=== PATIENT | male | born 1970 | race African-American/Black ===

== ENCOUNTER 2020-10-13 01:47 | Emergency (ER) | payer SELFPAY ==
[2020-10-13] MEDS ORDERED: Ciprofloxacin 500 MG Tab PO ONE (01:48)
[2020-10-13] MEDS ORDERED: Sodium Chloride 0.9% 10 ML Syringe FLUSH PRN (02:16)
[2020-10-13] MEDS ORDERED: HYDROmorphone 2 MG/ML SDV IVPUSH ONE (02:17)
--- NOTE | 2020-10-13 02:22 | EDM.PDOC ---
ED HPI GENERAL MEDICAL PROBLEM - General Stated Complaint: STOMACH PAIN Time Seen by Provider: 10/13/20 02:20 Source of Information: Reports: Patient History Limitations: Reports: No Limitations - History of Present Illness INITIAL COMMENTS - FREE TEXT/NARRATIVE: 49 yo male with severe abdominal colic for a bout 1 week. Nothing seems to help. No association with vomiting or constipation. No previous surgeries. He endorses dysuria as well Abdominal Pain Score (Numeric/FACES): 10 - Related Data Allergies Allergy/AdvReac Type Severity Reaction Status Date / Time No Known Allergies Allergy Verified 10/13/20 01:58 ED ROS GENERAL - Review of Systems Review Of Systems: Comprehensive ROS is negative, except as noted in HPI. ED EXAM, GI/ABD - Physical Exam Exam: See Below Exam Limited By: No Limitations General Appearance: Anxious, Mild Distress Ears: Normal External Exam Nose: Normal Inspection Neck: Normal Inspection Respiratory/Chest: No Respiratory Distress GI/Abdominal Exam: Normal Bowel Sounds, Distended, Guarding (Male) Exam: No Hernia Neurological: Alert Psychiatric: Normal Affect Course - Vital Signs Last Recorded V/S: Last Vital Signs Temp 97.4 F 10/13/20 01:47 Pulse 81 10/13/20 01:47 Resp 20 10/13/20 01:47 BP 152/102 H 10/13/20 01:47 Pulse Ox 100 10/13/20 01:47 - Orders/Labs/Meds Orders: Active Orders 24 hr Category Date Time Status Abdomen Pelvis w Cont [CT] Stat Exams 10/13/20 02:17 Taken CULTURE URINE [RM] Stat Lab 10/13/20 03:39 Ordered Sodium Chloride 0.9% [Saline Flush] Med 10/13/20 02:16 Active 10 ml FLUSH ASDIRECTED PRN Peripheral IV Insertion Adult [OM.PC] Routine Oth 10/13/20 02:16 Ordered Medication Orders Sodium Chloride (Saline Flush) 10 ml FLUSH ASDIRECTED PRN PRN Reason: Keep Vein Open Last Admin: 10/13/20 02:44 Dose: 10 ml Documented by: DIONNA Labs: Laboratory Tests 10/13/20 10/13/20 10/13/20 Range/Units 02:15 02:15 02:15 WBC 7.9 (3.2-10.1) x10-3/uL RBC 5.85 (3.90-5.90) x10(6)uL Hgb 14.7 (12.9-17.7) g/dL Hct 45.0 (38.3-50.1) % MCV 76.9 L (80.8-98.7) fL MCH 25.1 L (27.0-33.3) pg MCHC 32.6 (28.7-35.3) g/dL RDW 13.7 (12.4-15.0) % Plt Count 250 (117-477) x10(3)uL MPV 8.7 (6.7-11.0) fL Neut % (Auto) 64.0 (40.3-71.8) % Lymph % (Auto) 21.4 (15.8-45.3) % [place] % (Auto) 12.1 (5.5-15.2) % Eos % (Auto) 1.7 (0.1-6.8) % Baso % (Auto) 0.8 (0.3-3.8) % Neut # (Auto) 5.1 (1.7-6.9) x10-3/uL Lymph # (Auto) 1.7 (0.5-4.5) x10-3/uL [place] # (Auto) 1.0 (0.0-1.2) x10-3/uL Eos # (Auto) 0.1 (0.0-0.6) x10-3/uL Baso # (Auto) 0.1 (0.0-0.3) x10-3/uL Sodium 140 (135-145) mmol/L Potassium 3.9 (3.5-5.3) mmol/L Chloride 103 (100-110) mmol/L Carbon Dioxide 25 (21-32) mmol/L BUN 16 (7-18) mg/dL Creatinine 1.5 H (0.70-1.30) mg/dL Est Cr Clr Drug Dosing TNP Estimated GFR (MDRD) 50 L (>60) BUN/Creatinine Ratio 10.7 (9-20) Glucose 115 (80-116) mg/dL Lactic Acid (0.4-2.0) mmol/L Calcium 9.0 (8.6-10.2) mg/dL Total Bilirubin 0.6 (0.1-1.3) mg/dL AST 37 H (5-25) IU/L ALT 76 H (12-36) U/L Alkaline Phosphatase 135 H (56-112) IU/L C-Reactive Protein (0.5-0.9) mg/dL Total Protein 8.2 H (6.0-8.0) g/dL Albumin 3.4 L (3.5-5.2) g/dL Globulin 4.8 g/dL Albumin/Globulin Ratio 0.7 Amylase 74 (25-115) U/L Urine Color (YELLOW) Urine Appearance (CLEAR) Urine pH (5.0-6.5) Ur Specific [place] (1.010-1.025) Urine Protein (NEGATIVE) mg/dL Urine Glucose (UA) (NORMAL) mg/dL Urine Ketones (NEGATIVE) mg/dL Urine Occult Blood (NEGATIVE) Urine Nitrite (NEGATIVE) Urine Bilirubin (NEGATIVE) Urine Urobilinogen (NEGATIVE) mg/dL Ur Leukocyte Esterase (NEGATIVE) Urine RBC (0-5) Urine WBC (0-5) Ur Squamous Epith Cells (NS,R,O) Urine Bacteria (NS) 10/13/20 10/13/20 10/13/20 Range/Units 02:15 02:15 02:40 WBC (3.2-10.1) x10-3/uL RBC (3.90-5.90) x10(6)uL Hgb (12.9-17.7) g/dL Hct (38.3-50.1) % MCV (80.8-98.7) fL MCH (27.0-33.3) pg MCHC (28.7-35.3) g/dL RDW (12.4-15.0) % Plt Count (117-477) x10(3)uL MPV (6.7-11.0) fL Neut % (Auto) (40.3-71.8) % Lymph % (Auto) (15.8-45.3) % [place] % (Auto) (5.5-15.2) % Eos % (Auto) (0.1-6.8) % Baso % (Auto) (0.3-3.8) % Neut # (Auto) (1.7-6.9) x10-3/uL Lymph # (Auto) (0.5-4.5) x10-3/uL [place] # (Auto) (0.0-1.2) x10-3/uL Eos # (Auto) (0.0-0.6) x10-3/uL Baso # (Auto) (0.0-0.3) x10-3/uL Sodium (135-145) mmol/L Potassium (3.5-5.3) mmol/L Chloride (100-110) mmol/L Carbon Dioxide (21-32) mmol/L BUN (7-18) mg/dL Creatinine (0.70-1.30) mg/dL Est Cr Clr Drug Dosing Estimated GFR (MDRD) (>60) BUN/Creatinine Ratio (9-20) Glucose (80-116) mg/dL Lactic Acid 1.0 (0.4-2.0) mmol/L Calcium (8.6-10.2) mg/dL Total Bilirubin (0.1-1.3) mg/dL AST (5-25) IU/L ALT (12-36) U/L Alkaline Phosphatase (56-112) IU/L C-Reactive Protein 6.4 H* (0.5-0.9) mg/dL Total Protein (6.0-8.0) g/dL Albumin (3.5-5.2) g/dL Globulin g/dL Albumin/Globulin Ratio Amylase (25-115) U/L Urine Color Yellow (YELLOW) Urine Appearance Cloudy (CLEAR) Urine pH 5.0 (5.0-6.5) Ur Specific [place] 1.010 (1.010-1.025) Urine Protein 100 H (NEGATIVE) mg/dL Urine Glucose (UA) Normal (NORMAL) mg/dL Urine Ketones Negative (NEGATIVE) mg/dL Urine Occult Blood Large H (NEGATIVE) Urine Nitrite Positive H (NEGATIVE) Urine Bilirubin Negative (NEGATIVE) Urine Urobilinogen Normal (NEGATIVE) mg/dL Ur Leukocyte Esterase Large H (NEGATIVE) Urine RBC 20-30 H (0-5) Urine WBC >100 H (0-5) Ur Squamous Epith Cells Occasional (NS,R,O) Urine Bacteria Moderate H (NS) Meds: Medications Generic Name Dose Route Start Last Admin Trade Name Freq PRN Reason Stop Dose Admin Sodium Chloride 10 ml 10/13/20 02:16 10/13/20 02:44 Saline Flush FLUSH 10 ml ASDIRECTED PRN Administration Keep Vein Open Discontinued Medications Generic Name Dose Route Start Last Admin Trade Name Freq PRN Reason Stop Dose Admin Hydromorphone HCl 1 mg 10/13/20 02:17 10/13/20 02:45 Dilaudid IVPUSH 10/13/20 02:18 1 mg ONETIME ONE Administration Iopamidol 100 ml 10/13/20 02:58 10/13/20 03:09 [id number] (76%) IV 10/13/20 02:59 100 ml . DIRECTED ONE Administration Departure - Departure Time of Disposition: 03:40 Disposition: Home, Self-Care 01 Clinical Impression: Abdominal pain - Discharge Information Sepsis Event Note (ED) - Evaluation Sepsis Screening Result: No Definite Risk - Focused Exam Vital Signs: Vital Signs Temp Pulse Resp BP Pulse Ox 10/13/20 01:47 97.4 F 81 20 152/102 H 100 - Problem List & Annotations (1) UTI (urinary tract infection) SNOMED Code(s): 09621500 Code(s): N39.0 - URINARY TRACT INFECTION, SITE NOT SPECIFIED Status: Acute Current Visit: Yes Qualifiers: Urinary tract infection type: acute cystitis Hematuria presence: without hematuria Qualified Code(s): N30.00 - Acute cystitis without hematuria (2) Abdominal pain SNOMED Code(s): 68241406 Code(s): R10.9 - UNSPECIFIED ABDOMINAL PAIN Status: Acute Current Visit: Yes (3) HTN (hypertension) SNOMED Code(s): 24308215 Code(s): I10 - ESSENTIAL (PRIMARY) HYPERTENSION Status: Acute Current Visit: Yes Qualifiers: Hypertension type: essential hypertension Qualified Code(s): I10 - Essential (primary) hypertension - Problem List Review Problem List Initiated/Reviewed/Updated: Yes - My Orders Last 24 Hours: My Active Orders 10/13/20 02:16 Sodium Chloride 0.9% [Saline Flush] 10 ml FLUSH ASDIRECTED PRN Peripheral IV Insertion Adult [OM.PC] Routine 10/13/20 02:17 Abdomen Pelvis w Cont [CT] Stat 10/13/20 03:39 CULTURE URINE [RM] Stat - Assessment/Plan Last 24 Hours: My Active Orders 10/13/20 02:16 Sodium Chloride 0.9% [Saline Flush] 10 ml FLUSH ASDIRECTED PRN Peripheral IV Insertion Adult [OM.PC] Routine 10/13/20 02:17 Abdomen Pelvis w Cont [CT] Stat 10/13/20 03:39 CULTURE URINE [RM] Stat Plan: Patient improved with 1 mg Dilaudid. Will DC home with Augmentin. Push fliuds. Establish with PCP locally for follow up and BP control
[2020-10-13] MEDS ORDERED: Iopamidol 755 Mg/ML 100 ML Bottle IV ONE (02:58)
== END 2020-10-13 05:05 | disposition home or self-care (01) ==
LOC: FB.ED 01:47
DX: R10.84 Generalized abdominal pain (principal)
CPT/HCPCS: 36415; 74177; 80053; 81001; 82150; 83605; 85025; 86140; 87086; 87088; 87186; 96374; 99283; 99284; A9270; J1170; Q9967

== ENCOUNTER 2020-10-13 22:15 | Emergency (ER) | payer SELFPAY ==
[2020-10-13] MEDS ORDERED: Acetaminophen/oxyCODONE 325-5 MG Tab PO ONE (22:16)
[2020-10-13] MEDS ORDERED: Ketorolac 60 MG/2 ML SDV IM ONE (22:29)
--- NOTE | 2020-10-13 22:39 | EDM.PDOC ---
ED HPI GENERAL MEDICAL PROBLEM - General Stated Complaint: STOMACH PAIN Time Seen by Provider: 10/13/20 22:30 Source of Information: Reports: Patient History Limitations: Reports: No Limitations - History of Present Illness INITIAL COMMENTS - FREE TEXT/NARRATIVE: Patient presented to the ED because of RT flank pain. He was seen in the ED yesterday and was diagnosed with UTI. He has a complete GI work up. Labs are normal and also the CT abd/pelvis. He was discharge to home with Cipro. - Related Data Allergies Allergy/AdvReac Type Severity Reaction Status Date / Time No Known Allergies Allergy Verified 10/13/20 22:23 Home Meds: Home Meds Acetaminophen/oxyCODONE [Percocet 325-5 MG] 1 - 2 each PO Q4H PRN #15 tab 10/13/20 [Rx] Ciprofloxacin HCl [Cipro] 500 mg PO BID #20 tablet 10/13/20 [Rx] Ketorolac [Toradol] 10 mg PO TID PRN #15 tab 10/13/20 [Rx] Past Medical History Cardiovascular History: Reports: Hypertension Social & Family History - Family History Family Medical History: No Pertinent Family History - Caffeine Use Caffeine Use: Reports: Coffee, Soda, Tea ED ROS GENERAL - Review of Systems Review Of Systems: See Below Constitutional: Reports: No Symptoms HEENT: Reports: No Symptoms Respiratory: Reports: No Symptoms Cardiovascular: Reports: No Symptoms Endocrine: Reports: No Symptoms GI/Abdominal: Reports: Abdominal Pain Musculoskeletal: Reports: No Symptoms Skin: Reports: No Symptoms Neurological: Reports: Paresthesia ED EXAM, GI/ABD - Physical Exam Exam: See Below Exam Limited By: No Limitations General Appearance: Alert, No Apparent Distress Ears: Normal External Exam, Normal Canal Nose: Normal Inspection, Normal Mucosa Throat/Mouth: Normal Inspection, Normal Lips, Normal Teeth Head: Atraumatic, Normocephalic Neck: Normal Inspection, Supple, Non-Tender Respiratory/Chest: No Respiratory Distress, Lungs Clear, Normal Breath Sounds Cardiovascular: Normal Peripheral Pulses, Regular Rate, Rhythm, No Edema GI/Abdominal Exam: Normal Bowel Sounds, Soft, No Organomegaly, Other (RCVAT) Back Exam: Normal Inspection Extremities: Normal Inspection Course - Vital Signs Text/Narrative:: Toradol 60 MG IM x1 - Orders/Labs/Meds Meds: Medications Discontinued Medications Generic Name Dose Route Start Last Admin Trade Name Freq PRN Reason Stop Dose Admin Ketorolac Tromethamine 60 mg 10/13/20 22:29 Toradol IM 10/13/20 22:30 ONETIME ONE Departure - Departure Time of Disposition: 22:40 Disposition: Home, Self-Care 01 Condition: Good Clinical Impression: Pyelonephritis UTI (urinary tract infection) Qualifiers: Urinary tract infection type: acute cystitis Hematuria presence: without hematuria Qualified Code(s): N30.00 - Acute cystitis without hematuria - Discharge Information Prescriptions: Ciprofloxacin HCl [Cipro] 500 mg PO BID #20 tablet Acetaminophen/oxyCODONE [Percocet 325-5 MG] 1 - 2 each PO Q4H PRN #15 tab PRN Reason: Pain Ketorolac [Toradol] 10 mg PO TID PRN #15 tab PRN Reason: Pain Referrals: PCP,None [Primary Care Provider] - Additional Instructions: Please read discharge instructions on UTI and Pyelonephritis(kidney infection) Increase oral fluids at least 2-3 liters a day Take percocet 5/325, 1-2 tablets every 4-6 hours as needed for pain Follow up as needed
== END 2020-10-13 23:27 | disposition home or self-care (01) ==
LOC: FB.ED 22:15
DX: N12 Tubulo-interstitial nephritis, not specified as acute or chronic (principal); N30.00 Acute cystitis without hematuria; I10 Essential (primary) hypertension
CPT/HCPCS: 96372; 99283; A9270; J1885

== ENCOUNTER 2022-03-25 13:33 | Emergency (ER) | payer OTHER ==
[2022-03-25] MEDS ORDERED: Ondansetron 4 MG/2 ML SDV IVPUSH ONE (13:49)
[2022-03-25] MEDS ORDERED: Ketorolac 30 MG/ML SDV IVPUSH ONE (13:49)
[2022-03-25] MEDS ORDERED: Sodium Chloride 0.9% 1,000 ML IV SCH (14:00)
== END 2022-03-25 16:55 | disposition home or self-care (01) ==
LOC: FB.ED 13:33
DX: K52.9 Noninfective gastroenteritis and colitis, unspecified (principal); R79.82 Elevated C-reactive protein (CRP); I10 Essential (primary) hypertension; Z79.899 Other long term (current) drug therapy; Z20.822 Contact with and (suspected) exposure to COVID-19
CPT/HCPCS: 36415; 80053; 81001; 82272; 84484; 85025; 86140; 87804; 87804-59; 93005; 96361; 96374; 96375; 99282; 99284-25; J1885; J2405; J7030; U0002